=== PATIENT | male | born 1955 | race Caucasian/White ===

== ENCOUNTER → 2016-09-23 | Day surgery (SDC) | payer BC ==
[2016-09-23] VITALS (7 sets, daily range): BP systolic 118–139; BP diastolic 78–93; PULSE 62–73; TEMP 36.7; O2SAT 97–100; Ht 185.4 cm; Wt 95.5 kg
[~2016-09-23] VITALS: Ht 185.4 cm; Wt 95.5 kg
[~2016-09-23] MED LIST: APIX1TAB3 PO; BLACK CHERRY EXTRACT PO; DILT-115 PO; EpHEDrine SULFATE INJ 50 MG/ML AMP ONE; FLEC100T21 PO; LIDOCAINE HCL 2% 2 ML VIAL (20MG/ML) ONE; LSN5 PO; METO1TAB66 PO; PROB500T8 PO; PROPOFOL IV EMULSION 10 MG/ML 20 ML VIAL IV ONE; WARF2TAB PO
--- NOTE | 2016-09-23 07:43 | Discharge Instructions ---
Discharge Instructions Procedure Procedure Date: Sep 23, 2016. Reason for Visit: Maurilio Kaufman To Do, Anethesia Notified. Discharge Discharge Date: Sep 23, 2016. Discharge Diagnosis: Atrial flutter s/p direct current cardioversion Last Recorded Wt (Kilograms): 95.5 Anesthesia Post Anesthesia Instructions: If you have had General Anesthesia or IV Sedation: * Do not drive today. * Resume driving when surgeon permits. * Do not make important decisions or sign legal documents today. * Call surgeon for: 1. Temperature elevations greater than 101 degrees F. 2. Uncontrollable pain. 3. Excessive bleeding. 4. Persistent nausea and vomiting. 5. Medication intolerance (nausea, vomiting or rash). * For nausea and vomiting use only clear liquids such as: tea, soda, bouillon until nausea subsides, then gradually increase diet as tolerated. * If you have any concerns or questions, call your surgeon's office. If physician is unavailable and it is an emergency, call 911 or go to the nearest emergency room. Instructions Activity Recommendations: limitations as noted below Return to School/Work: with the following limitations Recommended Home Diet: resume previous diet Allergies: Coded Allergies: No Known Allergies (Unverified , 09/07/13) Follow Up Additional Instructions: ACTIVITY RECOMMENDATIONS: Resume activities as tolerated with no limitations unless specified. _x_ No lifting over _20_ pounds for 24 hours. _x_ Do not engage in vigorous exercise, sexual activity, or sports for 24 hours. _x_ Do not drive or operate any motorized equipment for 24 hours. _x_ You may return to work/school tomorrow. Follow-up with: Dr. Kaufman in 2 - 4 weeks. [facility] Recommendations: Call your doctor if: * Temperature above 101 degrees * Pain not relieved by pain medicine ordered * There is increased drainage or redness from any incision * You have any unanswered questions or concerns. Your Doctors Instructions noted above were prepared by provider Miguel Kaufman. Patient Signature Section: Patient Instructions Signature Page Osorio Langston Patient (or Guardian) Signature/Date: I have read and understand the instructions given to me by my caregivers. Caregiver/RN/Doctor Signature/Date: The above-named patient and/or guardian has received patient instructions on this date. + Original Patient Signature Page (only) stays with chart. Please make copy for patient.
--- NOTE | 2016-09-23 07:44 | CARDIOVERSION ---
DATE OF OPERATION: 09/23/2016 DATE OF PROCEDURE: 09/23/2016. PROCEDURE: External direct current cardioversion. INDICATIONS: Atrial fibrillation. PROCEDURAL SUMMARY: The patient was brought to the cardiac catheterization lab in a fasting state. Informed consent was obtained. Conscious sedation provided by anesthesia service. The defibrillator pads were placed in an anterior posterior position. When adequate sedation was achieved the defibrillator a synced to the QRS complex. Initially that was what appeared to be atrial flutter. An initial 100 joule shock was delivered. This was unsuccessful. The defibrillator was again synced to the QRS complex and a 200 joule shock was delivered. This successfully converted the patient from atrial flutter to sinus rhythm. No complications. CONCLUSION: Successful elective external direct current cardioversion from atrial flutter to sinus rhythm with 200 joules. No complications. I attest to the content of the Intraoperative Record and any orders documented therein. Any exceptio ns are noted below.
--- NOTE | 2016-09-23 08:10 | Anesthesiology Progress Note ---
Anesthesia Post Op Note Date & Time Sep 23, 2016 at 08:10 Vital Signs Pain Intensity: 0 Vital Signs Past 12 Hours Date Time Temp Pulse Resp B/P Pulse Ox O2 Delivery O2 Flow Rate FiO2 09/23/16 08:00 63 16 117/88 96 Room Air 09/23/16 07:50 58 16 121/83 96 Room Air 09/23/16 07:40 62 16 126/86 99 Room Air 09/23/16 07:40 62 16 126/86 96 Room Air 09/23/16 07:35 72 16 118/84 100 Nasal Cannula 5 09/23/16 07:33 72 16 125/78 100 Nasal Cannula 5 09/23/16 07:32 72 16 125/89 100 Nasal Cannula 5 09/23/16 07:30 73 16 125/89 100 Nasal Cannula 5 09/23/16 06:54 36.7 72 16 139/93 97 Room Air Notes Mental Status: alert / awake / arousable, participated in evaluation Pt Amnestic to Procedure: Yes Nausea / Vomiting: adequately controlled Pain: adequately controlled Airway Patency, RR, SpO2: stable & adequate BP & HR: stable & adequate Hydration State: stable & adequate Anesthetic Complications: no major complications apparent
== END | disposition home or self-care (01) ==
LOC: C.CATH 06:31
PROVIDERS: ATTEND Internal Medicine Cardiovascular Disease
DX: I48.91 Unspecified atrial fibrillation (principal); I10 Essential (primary) hypertension; J30.9 Allergic rhinitis, unspecified; M15.9 Polyosteoarthritis, unspecified; H25.019 Cortical age-related cataract, unspecified eye; M10.9 Gout, unspecified

== ENCOUNTER → 2017-11-01 | Day surgery (SDC) | payer BC ==
[~2017-11-01] VITALS: Ht 185.4 cm; Wt 95.0 kg
[~2017-11-01] MED LIST changes: -BLACK CHERRY EXTRACT PO; -EpHEDrine SULFATE INJ 50 MG/ML AMP ONE; +LOSA50TA6 PO; -METO1TAB66 PO; -WARF2TAB PO
--- NOTE | 2017-11-01 07:02 | History & Physical Bridge Note ---
H&P Re-Evaluation Bridge Note: I have examined the patient, reviewed the History & Physical and in the interval since the performance of the History & Physical I have noted the following changes of clinical significance: No changes noted
[2017-11-01 07:04] VITALS: BP 153/113; PULSE 88; TEMP 36.8; O2SAT 98; Ht 185.4 cm; Wt 95.0 kg
[2017-11-01 08:10] VITALS: BP 163/108; PULSE 83; O2SAT 96
[2017-11-01 08:15] VITALS: BP 130/84; PULSE 66; O2SAT 96
--- NOTE | 2017-11-01 08:27 | [facility] Post Operative Brief Note ---
Preliminary Procedure Note Procedure Date Nov 01, 2017. Pre-Procedure Diagnosis Arrhythmia AUC Score N/A Post-Procedure Diagnosis Cardiothoracic Finding (AF converted SR with 200J) Procedure(s) Performed Electrical Cardioversion Eligibility Technician Dr. Kaufman Systems Qa Analyst(s) None Estimated Blood Loss None Preliminary Findings Successful DCCV from AF to NSR with 200J Recommendations Medical therapy and/or Counseling Specimens None Procedural Complication(s) None Disposition Cyber Defense Analyst Holding/Recovery
--- NOTE | 2017-11-01 08:30 | Discharge Instructions ---
Discharge Instructions Procedure Procedure Date: Nov 01, 2017. Reason for Visit: Afib, W/Anesthesia, *[place] To Do*. Discharge Discharge Date: Nov 01, 2017. Discharge Diagnosis: atrial fibrillation status post external direct current cardioversion Last Recorded Wt (Kilograms): 95 Anesthesia Post Anesthesia Instructions: If you have had General Anesthesia or IV Sedation: * Do not drive today. * Resume driving when surgeon permits. * Do not make important decisions or sign legal documents today. * Call surgeon for: 1. Temperature elevations greater than 101 degrees F. 2. Uncontrollable pain. 3. Excessive bleeding. 4. Persistent nausea and vomiting. 5. Medication intolerance (nausea, vomiting or rash). * For nausea and vomiting use only clear liquids such as: tea, soda, bouillon until nausea subsides, then gradually increase diet as tolerated. * If you have any concerns or questions, call your surgeon's office. If physician is unavailable and it is an emergency, call 911 or go to the nearest emergency room. Instructions Activity Recommendations: limitations as noted below Return to School/Work: with the following limitations Recommended Home Diet: resume previous diet Allergies: Coded Allergies: No Known Allergies (Unverified , 09/07/13) Provider Instructions ACTIVITY RECOMMENDATIONS: Resume activities as tolerated with no limitations unless specified. _x_ No lifting over 10 pounds for 24 hours. _x_ Do not engage in vigorous exercise, sexual activity, or sports for 24 hours. _x_ Do not drive or operate any motorized equipment for 24 hours. _x_ You may return to work/school tomorrow. Follow Up Follow-up with: Dr. Kaufman as scheduled. [facility] Recommendations: Call your doctor if: * Temperature above 101 degrees * Pain not relieved by pain medicine ordered * There is increased drainage or redness from any incision * You have any unanswered questions or concerns. Your Doctors Instructions noted above were prepared by provider Miguel Kaufman. Patient Signature Section: Patient Instructions Signature Page Osorio Langston Patient (or Guardian) Signature/Date: I have read and understand the instructions given to me by my caregivers. Caregiver/RN/Doctor Signature/Date: The above-named patient and/or guardian has received patient instructions on this date. + Original Patient Signature Page (only) stays with chart. Please make copy for patient.
--- NOTE | 2017-11-01 08:35 | Anesthesiology Progress Note ---
Anesthesia Post Op Note Date & Time Nov 01, 2017 at 08:35 Vital Signs Pain Intensity: 0 Vital Signs Past 12 Hours Date Time Temp Pulse Resp B/P (MAP) Pulse Ox O2 Delivery O2 Flow Rate FiO2 11/01/17 08:30 65 16 130/93 (105) 95 Room Air 11/01/17 08:20 65 16 123/90 (101) 95 Room Air 11/01/17 08:15 66 18 130/84 96 Nasal Cannula 6 11/01/17 08:10 83 18 163/108 96 Nasal Cannula 6 11/01/17 07:04 36.8 88 18 153/113 (126) 98 Room Air Notes Mental Status: alert / awake / arousable, participated in evaluation Pt Amnestic to Procedure: Yes Nausea / Vomiting: adequately controlled Pain: adequately controlled Airway Patency, RR, SpO2: stable & adequate BP & HR: stable & adequate Hydration State: stable & adequate Anesthetic Complications: no major complications apparent
[2017-11-01 09:35] VITALS: BP 124/74; PULSE 67; O2SAT 98
--- NOTE | 2017-11-01 09:40 | CARDIOVERSION ---
DATE OF OPERATION: 11/01/2017 PROCEDURE: External direct current cardioversion. PREOPERATIVE DIAGNOSIS: Atrial fibrillation. POSTOPERATIVE DIAGNOSIS: Atrial fibrillation with successful cardioversion to sinus rhythm. COMPLICATIONS: None. SEDATION: Monitored sedation provided by the anesthesia service, please see separate documentation. PROCEDURAL SUMMARY: The patient was brought to the cardiac catheterization lab in the fasting state. Defibrillator pads were placed to the anterior and posterior position. The defibrillator was synched to the QRS complex. When adequate sedation was achieved, the defibrillator was charged to 200 joules. Atrial fibrillation confirmed on monitor. A single 200 joule shock was delivered. The patient was successfully converted to sinus rhythm. No complications. The patient tolerated the procedure well. CONCLUSION: Successful external direct current cardioversion from atrial fibrillation to sinus rhythm with 200 joules. I attest to the content of the Intraoperative Record and any orders documented therein. Any exception s are noted below.
== END | disposition home or self-care (01) ==
LOC: C.CATH 06:50
PROVIDERS: ATTEND Internal Medicine Cardiovascular Disease
DX: I48.0 Paroxysmal atrial fibrillation (principal); M15.9 Polyosteoarthritis, unspecified; M10.9 Gout, unspecified; I10 Essential (primary) hypertension; Z87.891 Personal history of nicotine dependence